=== PATIENT | male | born 1980 | race Caucasian/White ===

== ENCOUNTER 2018-02-05 13:32 | Outpatient (RCR) | payer BC, SELFPAY ==
--- NOTE | 2018-02-05 13:33 | COCO.CNN ---
Primary Reason for Visit Financial (help with winterizing camper) Referral to Care Coordination Referral to Care Coordination: Yes Type: Other ([facility] Referral to Services: No Care Plan - Plan of Care Assessment/Background: Jm was referred from the school. He came in to see if there are any resources with winterizing his camper. He is currently in the middle of buying land and can not spend the money on what he needs for his camper. I told him that I would see if anyong has any ideas but that I do not know of any services that could assist him with this issue. He recently started a new job and will be able to button up the camper in the next month. Plan of Care: as needed or if I find a service to help him [facility] Self Management Plan Complete?: Yes (action plan) At this Visit: [employer]
--- NOTE | 2018-02-05 13:37 | PDOC.CNN_ITS ---
Primary Reason for Visit Financial (help with winterizing camper) Referral to Care Coordination Referral to Care Coordination: Yes Type: Other ([facility]) Referral to Services: No Care Plan - Plan of Care Assessment/Background: Jm was referred from the school. He came in to see if there are any resources with winterizing his camper. He is currently in the middle of buying land and can not spend the money on what he needs for his camper. I told him that I would see if anyong has any ideas but that I do not know of any services that could assist him with this issue. He recently started a new job and will be able to button up the camper in the next month. Plan of Care: as needed or if I find a service to help him [facility] Self Management Plan Complete?: Yes (action plan) At this Visit: [employer]
== END 2018-03-05 23:59 | disposition home or self-care (01) ==
LOC: COCO 13:32
PROVIDERS: PCP Nurse Practitioner; Visit Provider Nurse Practitioner
DX: R69 Illness, unspecified (principal)

== ENCOUNTER 2018-05-04 10:00 | Outpatient (CLI) | payer BC, SELFPAY ==
[2018-05-05 09:09] LABS: PSA, Screening 1.1 ng/ml (0-2.5)
== END 2018-05-04 10:20 ==
PROVIDERS: PCP Nurse Practitioner; Visit Provider Urology
DX: Z12.5 Encounter for screening for malignant neoplasm of prostate (principal); Z80.42 Family history of malignant neoplasm of prostate
CPT/HCPCS: 36415; 84153

== ENCOUNTER 2018-11-28 09:54 | Emergency (ER) | payer BC, SELFPAY ==
--- NOTE | 2018-11-28 09:59 | NUR.NOTE ---
Nursing Note: pt has had a progressively worsening sore throat for the pasty 2 days 8/10 pain difficulty drinking fluids and swallowing
[2018-11-28 10:00] VITALS: BP 114/77; PULSE 74; RESP 16; TEMP 37.2; O2SAT 99
--- NOTE | 2018-11-28 10:17 | ED.GENADUL_ITS ---
Discharge Plan Disposition Patient Disposition: HOME Discharge Details Chief Complaint: Sorethroat Clinical Impression: Abscess of tonsil Primary Care Provider: Charito Quintero ED Provider: Clarence Lockwood Home Meds and New Rx's Prescriptions: New clindamycin HCl 150 mg capsule 450 mg PO TID 10 Days Qty: 90 RF: 0 Continued Excedrin Migraine 250-250-65 mg tablet 2 tab PO Q6H PRNRF: 0 diazepam [Valium] 10 mg tablet 10 mg PO ONCE PRN (Reason: premedication) Qty: 1 RF: 0 tramadol 50 mg tablet 50 mg PO Q6H PRN (Reason: pain) Qty: 12 RF: 0 Discharge Instructions Instructions: Peritonsillar Abscess (ED) Additional Instructions: CT imaging revealed enlarged and edematous Frederic tonsils with rim-enhancing focus in the left tonsil measuring 1.8 x 1.2 cm compatible with tonsillar abscess. Smaller fluid density focus in the inferior right tonsil does not demonstrate rim enhancement measuring 0.7 x 0.6 cm. Please take antibiotic as prescribed. Be sure to complete the full course. Please take ibuprofen over the counter. Take 600mg by mouth every 6 hours as needed for pain. Please take acetaminophen (tylenol) - 650mg every 6 hours by mouth as needed for pain. Please follow-up with an nuclear physics professor. Call tomorrow to arrange timely follow-up this week. Return to the ER for any worsening or new concerning symptoms. Referrals: Tyrell Hansen DO [OSTEOPATHIC DOCTOR] - Ricardo Overton MD [ [facility] STAFF PHYSICIAN] - Charito Quintero NP [Primary Care Provider] - Discharge Data Discharge Date/Time-TO BE ENTERED AT DEPARTURE: 11/28/18 12:22 Medical Decision Making 10:23 -- 38-year-old male here with pharyngitis over the past 4 days. Recent subjective fever. Patient is currently afebrile and not septic appearing. He does note that he has had some worsening discomfort on his left throat and neck. Airway intact. Consider deep space infection. Plan to obtain CT imaging of the neck. We will treat discomfort with ibuprofen and Decadron orally. Considered strep pharyngitis. Rapid strep test negative. --Labs reviewed and leukocytosis noted. --CT of the neck interpreted by radiology: IMPRESSION: 1. Both palatine tonsils are mildly enlarged and edematous. Rim-enhancing focus in the left tonsil measures 1.8 x 1.2 cm, compatible with tonsillar abscess. 2. Smaller, fluid density focus in the inferior right tonsil does not definitely demonstrate rim enhancement. Measures 0.7 x 0.6 cm. 3. No significant airway narrowing. Abscess is not apparent on physical exam and not amenable to ED incision and drainage. Patient was reassessed and noted significant improvement in discomfort after ibuprofen and Decadron. Plan to initiate treatment with Augmentin. Initial dose given here. I will have the patient follow-up with ENT to be reevaluated early this week. Referral sent to ENT. Patient understands importance of timely follow-up and that he should return immediately for any worsening or new concerning symptoms. HPI General Mode of arrival: ambulatory . Date/Time Provider Initiated Documentation: 11/28/18 09:58 . Limitations to Documentation: no limitations . Information obtained by: patient . HPI Narrative: 38-year-old male presents with chief complaint of sore throat. Patient has had sore throat for the past 4 days. Pain is progressively worsened and has been constant. Pain is localized to diffuse throat but over the past couple days more localized to the left side of his throat and neck. Pain is now severe. He took DayQuil today which did not help. He had associated subjective fever yesterday. Pain is worse with swallowing. Immunizations are up-to-date. No known exposures to STDs. No sick contacts. R elated Data Home Medications Medication Instructions Recorded Confirmed [id number] 250 2 tab PO Q6H PRN 03/15/18 11/28/18 mg-250 mg-65 mg tablet diazepam 10 mg tablet 10 mg PO ONCE PRN #1 tab 03/23/18 11/28/18 tramadol 50 mg tablet 50 mg PO Q6H PRN #12 tab 05/04/18 11/28/18 clindamycin HCl 450 mg PO TID 10 Days #90 cap 11/28/18 Previous Rx's Medication Instructions Recorded diazepam 10 mg tablet 10 mg PO ONCE PRN #1 tab 03/23/18 tramadol 50 mg tablet 50 mg PO Q6H PRN #12 tab 05/04/18 clindamycin HCl 450 mg PO TID 10 Days #90 cap 11/28/18 Allergies Allergy/AdvReac Type Severity Reaction Status Date / Time amoxicillin Allergy Unknown Rash Verified 11/28/18 10:01 vicryl sutures AdvReac Mild Uncoded 11/28/18 10:01 General Stated Complaint: Sorethroat COURTNEY: 4 Review of Systems Constitutional Reports fever(s) and Denies headache(s) ENT Reports as per HPI and Denies headache(s) Respiratory Denies cough Gastrointestinal Denies abdominal pain, Denies nausea and Denies vomiting Musculoskeletal Denies arthralgias and Denies joint swelling Integumentary/Breasts Denies rash Neurologic Denies headache(s) Hematologic/Lymphatic Denies lymphadenopathy PFSH Medical History ADHD Depression Migraines Surgical History Excision, Lipoma (12/24/16) Family History Mother Mental disorder Father Prostate cancer Social History Smoking/Tobacco Use Status: Current every day Tobacco Type: cigarettes Alcohol Intake: current Alcohol Intake frequency: a few times a month Drug use: Daily Substance use type: marijuana Number of Children: 2 current occupation: residential staff Do you feel safe at home: Yes Do you feel safe in your relationship?: Yes Exam Const General: cooperative and no acute distress HENMT Head: normocephalic and atraumatic Mouth: moist mucous membranes Throat: uvula midline, abnormal tonsil bilaterally erythema and exudates, no peritonsillar masses, posterior oropharynx abnormal erythema and exudates, no uvular edema and other (No trismus, no stridor) Eyes Conjunctivae: normal conjunctivae Sclera: normal sclerae Neck Neck: trachea midline, supple and no lymphadenopathy noted Resp Auscultation: clear to auscultation bilaterally, no rales, no rhonchi and no wheezes Cardio Jugular venous pressure: no JVD Rate: regular rate and not tachycardic Rhythm: regular rhythm GI Palpation: soft, not firm, no guarding, no masses, not rigid and nontender Skin General skin exam: no rashes or lesions noted Neuro General: alert, awake and tone normal Extrem General: no edema Psych Appearance: grossly normal Mental Status: mental status grossly normal Course Vital Signs Temperature 37.2 C 11/28/18 10:00 Pulse 74 11/28/18 10:00 Respiratory Rate 16 11/28/18 10:00 Blood Pressure 114/77 11/28/18 10:00 Pulse Oximetry 99 11/28/18 10:00 Temperature 37.2 C 11/28/18 10:00 Temperature Source Skin 11/28/18 10:00 Pulse 74 11/28/18 10:00 Respiratory Rate 16 11/28/18 10:00 Blood Pressure 114/77 11/28/18 10:00 Blood Pressure Position Sitting 11/28/18 10:00 Pulse Oximetry 99 11/28/18 10:00 Oxygen Delivery Method Room Air 11/28/18 10:00 Oxygen Flow Rate 0 11/28/18 10:00 Pain Level 8 11/28/18 10:00
[2018-11-28 10:28] LABS: Abs Immature Grans 0.02 k/cumm (0.0-0.09); Absolute Basophil Count 0.01 k/cumm (0.0-0.2); Absolute Eosinophil Count 0.09 k/cumm (0.0-0.7); Absolute Lymphocyte Count 1.81 k/cumm (1.2-3.4); Absolute Monocyte Count 1.06 k/cumm (0.11-0.7); Absolute Neutrophil Count 11.36 k/cumm (1.2-6.7); Basophils % 0.1; Eosinophils % 0.6; HCT 46.5 % (40.0-50.0); HGB 15.8 g/dL (13.5-17.5); Immature Grans % 0.1; Lymphocytes % 12.6; Mean Corpuscular Hemoglobin 30.6 pg (27.0-33.0); Mean Corpuscular Volume 90.1 fL (80-95); Mean Platelet Volume 10.2 fL (8.0-11.0); Monocytes % 7.4; Neutrophils % 79.2; Platelet Count 209 x1000/uL (130-400); RBC 5.16 m/cumm (4.50-6.00); RBC Distribution Width 14.1 % (11.8-14.1); White Blood Cell Count 14.34 k/cumm (4.4-10.8)
[2018-11-28] MEDS: Dexamethasone 10 MG/ML VIAL PO (10:31)
[2018-11-28] MEDS: Ibuprofen 600 MG TAB PO (10:31)
[2018-11-28 10:41] LABS: ALT 30 U/L (16-63); AST 16 U/L (15-37); Alkaline Phosphatase 100 U/L (46-116); Anion Gap 9.6 mmol/L (3-11); BUN 14 mg/dL (7-18); Bilirubin, Total 0.6 mg/dL (0.2-1.0); CO2 25.4 mmol/L (21.0-32.0); CREATININE 0.91 mg/dL (0.70-1.30); Calcium 9.1 mg/dL (8.5-10.1); Chloride 104 mmol/L (98-107); Glucose 101 mg/dL (70-100); Potassium 4.1 mmol/L (3.5-5.1); Sodium 139 mmol/L (136-145); Total Protein 7.3 g/dL (6.4-8.2)
[2018-11-28] MEDS: Omnipaque 350 MG/ML 100 ML BTL IJ (11:12)
[2018-11-28] MEDS: Normal Saline Flush 10 ML SYR IVP (11:12)
--- NOTE | 2018-11-28 11:13 | DI.CT_ITS ---
SYMPTOMS/DIAGNOSIS: SORE THROAT, PAIN LT CT OF THE NECK: There is enlargement of the palatine tonsils. There is a low density area measuring 1.8 cm in greatest dimension consistent with a tonsillar abscess. A smaller low density area seen in the right tonsil measuring 7 mm in greatest dimension. The epiglottis appears normal. The parotid, submandibular and thyroid glands appear normal. There is no adenopathy. The visualized portions of the upper lobes appear clear. IMPRESSION: Findings consistent with small bilateral tonsillar abscesses, left greater than right.
--- NOTE | 2018-11-28 11:42 | DI.VRAD_ITS ---
EXAM: CT Neck With Contrast EXAM DATE/TIME: 11/28/2018 10:18 AM CLINICAL HISTORY: 38 years old, male; Other: Sore throat, pain on left TECHNIQUE: Imaging protocol: Computed tomography images of the neck with intravenous contrast. Radiation optimization: All CT scans at this facility use at least one of these dose optimization techniques: automated exposure control; mA and/or kV adjustment per patient size (includes targeted exams where dose is matched to clinical indication); or iterative reconstruction. Contrast material: OMNIPAQUE 350; Contrast volume: 100 ml; Contrast route: IV; COMPARISON: No relevant prior studies available. FINDINGS: Brain: No significant airway narrowing. Nasopharynx: Normal. Oropharynx: Both palatine tonsils are mildly enlarged and edematous. Rim-enhancing focus in the left tonsil measures 1.8 x 1.2 cm, compatible with tonsillar abscess. Smaller, fluid density focus in the inferior right tonsil does not definitely demonstrate rim enhancement. Measures 0.7 x 0.6 cm. Hypopharynx: Normal. Larynx: Normal. Normal epiglottis. Retropharyngeal space: Normal. Submandibular/Parotid glands: Normal. Glands are normal in size. Thyroid: Normal. No enlarged or calcified nodules. Lymph nodes: Normal. No lymphadenopathy. Trachea: Visualized trachea is unremarkable. Lungs: Normal as visualized. Bones/joints: Normal. No acute fracture. Soft tissues: See Oropharynx Finding. IMPRESSION: 1. Both palatine tonsils are mildly enlarged and edematous. Rim-enhancing focus in the left tonsil measures 1.8 x 1.2 cm, compatible with tonsillar abscess. 2. Smaller, fluid density focus in the inferior right tonsil does not definitely demonstrate rim enhancement. Measures 0.7 x 0.6 cm. 3. No significant airway narrowing. Dictated and Authenticated by: Sammie Vergara MD. Ordering:KOJO Lima MD
[2018-11-28 12:19] VITALS: BP 119/70; PULSE 70; RESP 18; TEMP 36.9; O2SAT 96
[2018-11-28] MEDS: Clindamycin 150 MG CAP 450 MG PO (12:22)
--- NOTE | 2018-11-28 18:38 | NUR.NOTE ---
Nursing Note: [facility]ax[facility] referral,MD [facility] Pricilla Cornelius.
== END 2018-11-28 12:22 | disposition home or self-care (01) ==
PROVIDERS: Emergency Provider Student in an Organized Health Care Education/Training Program; PCP Nurse Practitioner
DX: J36 Peritonsillar abscess (principal); F17.210 Nicotine dependence, cigarettes, uncomplicated
CPT/HCPCS: 36415; 70491; 80053; 87880; 99285; 85025; 87081; 99284; J1100; J3490

== ENCOUNTER 2019-11-09 08:55 | Outpatient (CLI) | payer BC, SELFPAY ==
--- NOTE | 2019-11-09 08:45 | DI.RAD_ITS ---
EXAM: XR TIB/FIB RT CLINICAL HISTORY: right ankle fracture TECHNIQUE: COMPARISON: CR XR ANKLE 3 VIEWS RIGHT from 11/05/2019 CR XR ANKLE RT COMPLETE from 11/09/2019 FINDINGS: Five views of the ankle and two views of the leg were obtained. There is a mildly displaced fracture of medial malleolus. There is a mildly displaced fracture the posterior malleolus. The ankle morti se appears fairly well maintained. No additional fracture seen. No proximal fracture identified on radiographs of the leg. IMPRESSION: Mildly displaced fractures of medial and posterior malleoli.
== END 2019-11-09 09:15 ==
PROVIDERS: PCP Nurse Practitioner; Referring Provider Nurse Practitioner; Visit Provider Student in an Organized Health Care Education/Training Program
DX: S82.51XA Displaced fracture of medial malleolus of right tibia, initial encounter for closed fracture (principal)
CPT/HCPCS: 73590; 73610

== ENCOUNTER 2019-11-23 15:49 | Outpatient (CLI) | payer BC, SELFPAY ==
--- NOTE | 2019-11-23 13:45 | DI.RAD_ITS ---
EXAM: XR ANKLE RT COMPLETE CLINICAL HISTORY: fu fracture TECHNIQUE: 2D digital imaging was performed. COMPARISON: CR XR ANKLE 3 VIEWS RIGHT from 11/05/2019 CR XR TIB/FIB RT from 11/09/2019 CR XR ANKLE RT COMPLETE from 11/09/2019 CR XR ANKLE RT COMPLETE from 11/09/2019 FINDINGS: Some soft tissue swelling remains present. There has been no change in the alignment of the medial malleolar fracture. A posterior malleolar fracture is not visible on the current exam. There is no ankle mortise widening. Heel spurs are noted.
== END 2019-11-23 16:09 ==
PROVIDERS: PCP Nurse Practitioner; Referring Provider Nurse Practitioner; Visit Provider Student in an Organized Health Care Education/Training Program
DX: S82.51XA Displaced fracture of medial malleolus of right tibia, initial encounter for closed fracture (principal); M77.31 Calcaneal spur, right foot
CPT/HCPCS: 73610

== ENCOUNTER 2019-12-14 14:49 | Outpatient (CLI) | payer BC, SELFPAY ==
--- NOTE | 2019-12-14 13:58 | DI.RAD_ITS ---
EXAM: XR ANKLE RT COMPLETE INDICATION: fu right ankle fx. COMPARISON: CR XR ANKLE 3 VIEWS RIGHT from 11/05/2019 CR XR ANKLE RT COMPLETE from 11/09/2019 CR XR ANKLE RT COMPLETE from 11/23/2019 TECHNIQUE: 2D digital imaging was performed. FINDINGS: There has been no change in the alignment of the fracture of the medial malleolus. There is no signi ficant separation at the articular surface. No new abnormalities are seen. DATA REPOSITORY: RADIATION DOSE DELIVERED:
== END 2019-12-14 15:09 ==
PROVIDERS: PCP Nurse Practitioner; Referring Provider Nurse Practitioner; Visit Provider Student in an Organized Health Care Education/Training Program
DX: S82.51XA Displaced fracture of medial malleolus of right tibia, initial encounter for closed fracture (principal)
CPT/HCPCS: 73610

== ENCOUNTER 2020-01-11 14:49 | Outpatient (CLI) | payer BC, SELFPAY ==
--- NOTE | 2020-01-11 13:45 | DI.RAD_ITS ---
EXAM: XR ANKLE RT COMPLETE CLINICAL HISTORY: fu right ankle fracture TECHNIQUE: COMPARISON: CR XR ANKLE RT COMPLETE from 12/14/2019 FINDINGS: Three views were obtained and show previously described fracture of medial malleolus, no gross interv al change in alignment of fracture fragments comparison with previous examination December 13. The ankle mortise remains well maintained. IMPRESSION: RADIATION DOSE DELIVERED: Total DLP
== END 2020-01-11 15:09 ==
PROVIDERS: PCP Nurse Practitioner; Referring Provider Nurse Practitioner; Visit Provider Student in an Organized Health Care Education/Training Program
DX: S82.841A Displaced bimalleolar fracture of right lower leg, initial encounter for closed fracture (principal)
CPT/HCPCS: 73610

== ENCOUNTER 2020-02-08 14:47 | Outpatient (CLI) | payer BC, SELFPAY ==
--- NOTE | 2020-02-08 14:15 | DI.RAD_ITS ---
EXAM: XR ANKLE RT COMPLETE CLINICAL HISTORY: F/u right ankle. TECHNIQUE: 2D digital imaging was performed. COMPARISON: CR XR ANKLE 3 VIEWS RIGHT from 11/05/2019 CR XR ANKLE RT COMPLETE from 01/11/2020 FINDINGS: BONES: There has been no significant change in alignment of the medial malleolar fracture. No new fr acture is identified. No bony destructive lesion is seen. JOINTS: The ankle mortise is normally aligned. SOFT TISSUE: Normal. IMPRESSION: Stable medial malleolar fracture. DATA REPOSITORY: RADIATION DOSE DELIVERED:
== END 2020-02-08 15:07 ==
PROVIDERS: PCP Nurse Practitioner; Visit Provider Student in an Organized Health Care Education/Training Program
DX: S82.51XA Displaced fracture of medial malleolus of right tibia, initial encounter for closed fracture (principal)
CPT/HCPCS: 73610

== ENCOUNTER 2021-04-16 02:10 | Outpatient (CLI) | payer BC, SELFPAY ==
[2021-04-16 08:10] LABS: HCT 45.1 % (40.0-50.0); HGB 14.6 g/dL (13.5-17.5); MCH 29.3 pg (27.0-33.0); MCHC 32.4 % (32.0-36.0); MCV 90.6 fL (80-95); MPV 9.9 fL (8.0-11.0); Platelet Count 206 10^3/uL (130-400); RBC 4.98 10^6/uL (4.36-5.78); RDW 13.3 % (11.8-14.1); RDW-SD 44.9 fL; WBC 6.83 10^3/uL (4.4-10.8)
[2021-04-16 09:03] LABS: ALT 55 U/L (16-63); AST 25 U/L (15-37); Albumin 4.1 g/dL (3.4-5.0); Alkaline Phosphatase 73 U/L (46-116); BUN 16 mg/dL (7-18); Bilirubin, Total 0.4 mg/dL (0.2-1.0); CO2 29.9 mmol/L (21.0-32.0); Calcium 9.4 mg/dL (8.5-10.1); Calculated LDL 130 mg/dL (<100); Cholesterol 200 mg/dL (<200); Glucose 101 mg/dL (74-106); HDL Cholesterol 45 mg/dL (40-60); Total Protein 6.6 g/dL (6.4-8.2); Triglyceride 127 mg/dL (<150)
[2021-04-16 09:06] LABS: Anion Gap 6.1 mmol/L (3-11); Chloride 105 mmol/L (98-107); Potassium 4.6 mmol/L (3.5-5.1); Sodium 141 mmol/L (136-145)
[2021-04-16 17:57] LABS: PSA, Screening 1.2 ng/mL (0.0-2.5)
[2021-04-19 15:08] LABS: Testosterone, Total 910 ng/dL (240-950)
== END 2021-04-16 02:11 | disposition home or self-care (01) ==
LOC: LBO 02:10
PROVIDERS: Urology; PCP Nurse Practitioner; Visit Provider Nurse Practitioner
DX: R68.82 Decreased libido (principal); Z13.220 Encounter for screening for lipoid disorders; Z80.42 Family history of malignant neoplasm of prostate; Z12.5 Encounter for screening for malignant neoplasm of prostate
CPT/HCPCS: 36415; 80053; 80061; 84153; 84403; 85027

== ENCOUNTER 2023-10-02 09:05 | Day surgery (SDC) | payer BC, SELFPAY ==
--- NOTE | 2023-10-01 21:20 | W.PM.DSUDISC ---
Date of service: 10/02/23 Time of Service: 11:13 Discharge Plan Disposition Patient Disposition: Home Condition: Good Discharge Details Reason For Visit: screening colonoscopy Attending Provider: Jasvir Diaz Primary Care Provider: Charito Quintero Home Meds and New Rx's Prescriptions: Continued Excedrin Migraine 250-250-65 mg tablet 2 tab PO Q6H PRN ibuprofen 200 mg tablet 200 mg PO Q6H PRN gabapentin 300 mg capsule 300 mg PO TID Qty: 90 3RF Discontinued bisacodyl [Dulcolax (bisacodyl)] 5 mg tablet,delayed release (DR/EC) 5 mg PO ONCE Qty: 4 0RF Rx Instructions: Take per colonoscopy instructions provided by ordering providers office polyethylene glycol 3350 17 gram/dose powder 17 g PO ONCE Qty: 238 0RF Rx Instructions: Take per colonoscopy instructions provided by ordering providers office Discharge Instructions Instructions: Colon polyps Additional Instructions: Team, we were able to complete your colonoscopy today without any difficulty. Your prep was excellent and I could see everything fine. I did find and remove for polyps from your rectum today. I suspect these may just be hyperplastic polyps, which are no risk at all, but to be safe, I will send them off for testing. The types of polyps that are found inside influence the timing of the next colonoscopy. It will take about a week or 2 for me to get all these results, but once are available, the office will be in touch with recommendations for your next colonoscopy. If you need anything or have any questions in the meantime, please call. 1. If tolerated, consume a soft, low fiber diet for 1-2 days. 2[address] Do not drive, drink alcohol, operate machinery, make critical decisions, or do activities that require coordination or balance for 24 hours. 3. Because air was put into your colon during the procedure, expelling air from your rectum (passing gas or farting) is normal. 4. You may not have a bowel movement for 1-3 days because of the colonoscopy prep. This is normal. 5. Go directly to the emergency room if you notice any of the following: Develop chills (warm to touch), or if you have a thermometer and your temperature is above 101 Difficulty breathing or difficultly swallowing Persistent vomiting Severe abdominal pain, other than gas cramps Severe chest pain Black, tarry stools Any bleeding ? exceeding one tablespoon 6. Call your physician if the site where your intravenous was started becomes red, swollen, painful, and warm to touch. 7. Your physician has reviewed your pre-procedure medications. Please continue to take those medications as previously ordered. You will be given specific information/education regarding any changes to your medications before leaving. Activity:: Activity as Tolerated Diet:: As Tolerated Discharge Orders Discharge Orders: Discharge Order (Routine); Ordered 10/01/23 Ordered By: Jasvir Diaz DS: Diagnosis Discharge Diagnosis (1) Encounter for screening colonoscopy: Status: Acute Asessment and Plan: Follow-up on polypectomy results
--- NOTE | 2023-10-01 21:22 | COLE_ITS ---
Date of service: 10/02/23 Time of Service: 11:18 Colonoscopy Report Date of procedure: 10/02/23 Pre-op diagnosis general: screening colonoscopy Post-op diagnosis procedure note: other (Rectal polyps) Procedure: colonoscopy with polypectomy Surgeon: Jasvir Diaz Anesthesia Type: General:No Airway Estimated blood loss (mL): 5 Pathology: other (0.25 cm rectal polyps at 15 cm x 4) Complications: None Disposition: same day Indications: Olivier is a 43 year old man who needs a screening colonoscopy Prep: Miralax/Dulcolax Procedure Start Time: 10:52 Procedure End Time: 11:08 Retraction Time: 12 Findings: 4 flat rectal polyps, each measuring less than 0.25 cm Procedure Description: After the induction of anesthesia, and with the patient in left lateral decubitus position, I began by performing an external anorectal exam.? Perineum and skin were normal, as was the anal verge.? There was no evidence of external hemorrhoids.? Next, I performed a digital rectal exam.? I did not appreciate any abnormal findings.? Next, I advanced a colonoscope into the rectal vault.? I performed retroflexion.? This appeared normal.? Using insufflation, I then advanced the colonoscope beyond the rectal folds and into the sigmoid colon before advancing towards the cecum.? The scope was noted to be in the cecum by identification of the ileocecal valve and appendiceal orifice.? I then began withdrawing the colonoscope using repeated irrigation as necessary for full evaluation of the colonic mucosa. ?Once the scope was withdrawn to the level of the rectum, great care was taken to examine portions of the rectal folds.? In the upper portion of the rectal vault, around 15 cm from the anus was a small cluster of polyps. Each was less than 0.25 cm. Narrowband imaging was used to assist with analysis. I suspect these are hyperplastic polyps, but I did remove them with cold forceps polypectomy today just to be safe. Polypectomy sites looked healthy, and there was no evidence of any worrisome bleeding. Finally, the scope was withdrawn and the patient was brought to the same-day surgery recovery unit as the anesthetic wore off. ?The findings and instructions were shared with the patient prior to discharge. Reading Bowel Prep Reading Bowel Prep Right Colon: 3 Left Colon: 3 Transverse Colon: 3 Total Score: 9
[2023-10-02 09:11] VITALS: BP 116/74; PULSE 80; RESP 16; TEMP 36.4; O2SAT 99
[2023-10-02] MEDS: Lactated Ringers 1,000 ML 80 ML IV (09:29)
--- NOTE | 2023-10-02 09:42 | W.ANESPRE ---
General Info Date of Service Date Performed: 10/02/23 Height: 6 ft 1 in Weight: 110.677 kg Body Mass Index (BMI): 32.1 Surgical Procedure: Operation Date: 10/02/23 10:50 Proposed Procedure Side Surgeon p Colonoscopy Jasvir Diaz MD Meds Allergies and Home Medications Allergies Allergy/AdvReac Type Severity Reaction Status Date / Time amoxicillin Allergy Unknown Rash Verified 10/02/23 09:09 vicryl sutures AdvReac Mild Unknown Uncoded 10/02/23 09:09 Home Medication Medication Instructions Recorded wbnlbyv-qnlargjlgoovh-qkdlxmqq 250 2 tab PO Q6H PRN 03/15/18 mg-250 mg-65 mg tablet (Excedrin Migraine) ibuprofen 200 mg tablet 200 mg PO Q6H PRN 12/14/19 gabapentin 300 mg capsule 300 mg PO TID pain #90 caps 09/14/23 Current Visit Medications: Current Medications Generic Name Dose Route Start Last Admin Trade Name Freq PRN Reason Stop Dose Admin Hyoscyamine Sulfate 0.125 mg 10/01/23 21:26 Hyoscyamine 0.125 Mg Sl/Oral/Chew SL 10/31/23 21:25 DIRECTED PRN Ringer's Solution 1,000 mls @ 80 mls/hr 10/02/23 06:00 10/02/23 09:29 IV 10/02/23 23:59 80 mls/hr INFUSION JAYCEE Administration IV Miscellaneous Supplies 1 each 10/02/23 06:00 Iv Access IV 10/02/23 23:59 DIRECTED JAYCEE Ondansetron HCl 4 mg 10/01/23 21:26 Ondansetron 4 Mg/2 Ml Vial IVP 10/31/23 21:25 Q4H PRN PRN Nausea / Vomiting Sodium Chloride 0 ml 10/02/23 06:00 Normal Saline Flush 10 Ml Syr IV 10/02/23 23:59 PRN PRN Sodium Chloride 0 ml 10/02/23 06:00 Normal Saline 10 Ml Vial IJ 10/02/23 23:59 DIRECTED PRN Sterile Water 0 ml 10/02/23 06:00 Water,Injection,Sterile 10 Ml Vial IJ 10/02/23 23:59 DIRECTED PRN PFSH Active Problems Active Problems: Problem Status Onset Code Encounter for screening colonoscopy Z12.11 Family history of prostate cancer in father Z80.42 Chronic rhinitis J31.0 Ankle fracture, bimalleolar, closed 11/05/19 S82.843A Migraine headache 12/04/16 G43.909 Tobacco abuse 01/05/17 Z72.0 Migraine without aura and without status migrainosus, not intractable 12/04/16 G43.009 Migraine 12/04/16 G43.909 Chronic back pain 10/28/16 M54.9, G89.29 Attention-deficit hyperactivity disorder, unspecified type 10/28/16 F90.9 Medical History Medical History ADHD Migraines Depression Surgical History Surgical History S/P vasectomy Excision, Lipoma (12/24/16) angiolipoma of right forearm, left flank, left posterior thigh and right anterior thigh. Tobacco Smoking/Tobacco Use Status: Former Tobacco Use Alcohol Alcohol Intake: current Alcohol intake frequency: a few times a month Substance Use Substance use: Never Substance use type: does not use Vital Signs and Lab Results Vital Signs Most Recent Vital Signs in EMR: Most Recent Vital Signs Temp Pulse Resp BP Pulse Ox 36.4 C L 80 16 116/74 99 10/02/23 09:11 10/02/23 09:11 10/02/23 09:11 10/02/23 09:11 10/02/23 09:11 Lab Results Blood Type / Crossmatch: No Data to Display Complete Blood Count: No Data to Display Complete Metabolic Panel: No Data to Display Liver Function Panel: No Data to Display Coagulation Panel: No Data to Display Cardiac Panel: No Data to Display Arterial Blood Gas: No Data to Display Venous Blood Gas: No Data to Display Pancreas Panel: No Data to Display Thyroid Panel: No Data to Display Infectious Disease: No Data to Display Blood Cultures: No Data to Display Toxicology Panel: No Data to Display Anesthesia Assessment and Plan Anesthesia History Personal History: No History of Anesthesia Complications Family History: No Family History of Anesthesia Complications Exercise Tolerance Exercise Tolerance: Metabolic Equivalents>4 Pertinent Negatives Pertinent Negatives: No Symptoms of GERD (does have hx of GERD), No Major Cardiovascular Symptoms or Complaints, No Major Pulmonary Symptoms or Complaints and No History of CVA/TIA Cardiac & Pulmonary Exam Cardiac Exam: Normal S1/S2 Heart Sounds Pulmonary Exam: Clear Bilateral Breath Sounds Implantable Cardiac Device Does patient have a Pacemaker or an ICD?: No Airway Exam Known Difficult Airway: No Mallampati Class: 2 Mouth Opening: Normal (> 3cm) Thyromental Distance: Greater than 3 cm Neck Range of Motion: Full ROM Neck Circumference: Normal Teeth Condition: Normal Dentition ASA Classification ASA Score: ASA 2 Emergency Case?: No NPO Status NPO Status: NPO Clears >2 hours, Solids >8 hours Anesthesia Plan Resuscitation Status: Full Code Anesthesia Technique: General Anesthesia Airway Planned: Natural Airway Monitors Used: Standard Monitors Preoperative Comments:: 42 y o male with history of migraines, chornic back pain and ADHD presents for colonoscopy screening
[2023-10-02 09:46] VITALS: BMI 32.1
--- NOTE | 2023-10-02 11:06 | BOWEL_PTH ---
PATIENT: Olivier Montague LOC: [facility] U#:[id number] AGE/SX: 43/M ROOM: RE10/02/[address]: Jasvir Diaz MD : 1980 BED: DIS: 10/02/2023 SPEC #: [id number] RECD: 10/02/23 13:08 STATUS: JACKELIN RE #: [id number] JONI: 10/02/23 11:[address]: Jasvir Diaz DEPT: Surgical Specimen RECD BY: Mitzi Melendez ENTERED: 10/02/23 13:09 SP TYPE: Bowel OTHR DR: Charito Quintero APRN Tissues: 1 - BIOPSY BOWEL Procedures: GROSS AND MICRO LEVEL 4 Comments: [id number]
[2023-10-02 11:13] VITALS: BP 99/68; PULSE 72; RESP 16; TEMP 36.3; O2SAT 97
--- NOTE | 2023-10-02 11:31 | W.ANESPOSTOP ---
Postoperative Evaluation Date, Time and Location Date Performed: 10/02/23 Time Performed: : Patient Location: Day [facility] Unit Vital Signs Most Recent Imported Vital Signs: Most Recent Vital Signs Temp Pulse Resp BP Pulse Ox 36.3 C L 72 16 99/68 L 97 10/02/23 11:13 10/02/23 11:13 10/02/23 11:13 10/02/23 11:13 10/02/23 11:13 Pain Score Most Recent Pain Score: Most Recent Pain Score Pain Level 0 10/02/23 11:13 Assessment Mental Status: Awake (Alert & Oriented to Patient Baseline) Airway and Respiratory Function: Patent airway with normal (patient baseline) respiratory exam Cardiovascular Function: Hemodynamically Stable Hydration Status: Adequately Hydrated Nausea & Vomiting: No Nausea or Vomiting Pain: Pt. Denies Any Pain Peripheral Nerve Block: Patient did not receive a nerve block
[2023-10-02 11:44] VITALS: BP 105/70; PULSE 61; RESP 16; TEMP 36.1; O2SAT 99
== END 2023-10-02 12:02 | disposition home or self-care (01) ==
LOC: SUR 09:06
PROVIDERS: PCP Nurse Practitioner; Visit Provider Surgery
PROC: 0DJD8ZZ Inspection of Lower Intestinal Tract, Via Natural or Artificial Opening Endoscopic (ICD-10-PCS; CPT 45378; principal; 2023-10-02 10:45)
DX: Z12.11 Encounter for screening for malignant neoplasm of colon (principal); K62.1 Rectal polyp
CPT/HCPCS: 45380; 88305; J2001; J2704

== ENCOUNTER 2024-07-22 10:54 | Outpatient (CLI) | payer BC, SELFPAY ==
--- NOTE | 2024-07-22 11:05 | DI.RAD_ITS ---
Exam(s) XR CERVICAL SPINE COMP 4-5V EXAM: XR CERVICAL SPINE COMP 4-5V CLINICAL HISTORY: M54.2 Cervicalgia. TECHNIQUE: 2D digital imaging was performed. COMPARISON: No exams were available for comparison FINDINGS: Five views No evidence of fracture, listhesis, nor offset of the spinal laminar line. There is mild disc space narrowing at C 5-6 level and mild anterior osseous lipping. Small left-side d Luschka joint osteophytes are noted at this level. Other disc spaces exhibit normal height. Facet joints appear unremarkable. There are no cervical ribs. BONE DENSITY NORMAL. NO OSSEOUS LESIONS. IMPRESSION: Degenerative disc disease at C5-6 level as described above. DATA REPOSITORY: RADIATION DOSE DELIVERED:
--- NOTE | 2024-07-22 11:05 | DI.RAD_ITS ---
Exam(s) XR SHOULDER LT COMPLETE 2+V EXAM: XR SHOULDER LT COMPLETE 2+V CLINICAL HISTORY: Pain in lt shoulder M25.512. TECHNIQUE: 2D digital imaging was performed. COMPARISON: No exams were available for comparison FINDINGS: FIVE VIEWS No evidence of fracture or dislocation or abnormal soft tissue calcifications. The subacromial space appears unremarkable. No obvious degenerative changes. Bone density normal. No osseous lesions. IMPRESSION: No significant radiographic findings in the left shoulder. DATA REPOSITORY: RADIATION DOSE DELIVERED:
== END 2024-07-22 11:14 ==
LOC: DI 10:54
PROVIDERS: PCP Nurse Practitioner; Visit Provider Physician Assistant Medical
DX: M25.512 Pain in left shoulder (principal); M50.122 Cervical disc disorder at C5-C6 level with radiculopathy
CPT/HCPCS: 72050; 73030